=== PATIENT | female | born 2000 | race Caucasian/White ===

== ENCOUNTER 2019-08-22 12:47 | Emergency (ER) | payer OTHER ==
[~2019-08-22] VITALS: Ht 162.6 cm; Wt 68.3 kg
[2019-08-22] MEDS ORDERED: METOCLOPRAMIDE 5 MG/ML, 2ML ONE (13:23)
[2019-08-22] MEDS ORDERED: KETOROLAC 30 MG/1 ML ONE (13:23)
[2019-08-22] MEDS ORDERED: DIPHENHYDRAMINE 50 MG/ML, 1ML ONE (13:23)
[2019-08-22] MEDS ORDERED: DIPHENHYDRAMINE 50 MG/ML, 1ML IVPush ONE (13:30)
[2019-08-22] MEDS ORDERED: METOCLOPRAMIDE 5 MG/ML, 2ML IVPush ONE (13:30)
[2019-08-22] MEDS ORDERED: KETOROLAC 30 MG/1 ML IVPush ONE (13:30)
[2019-08-22] MEDS ORDERED: SODIUM CHLORIDE 0.9% 1,000ML IVBOLUS ONE ×2 (13:30→14:30)
[2019-08-22 13:37] LABS: BASOPHILS # (AUTO) 0.06 x10^3/uL (0-0.1); BASOPHILS % (AUTO) 1 % (0-1); CHLORIDE 111 mmol/L (98-107); EOSINOPHILS # (AUTO) 0.07 x10^3/uL (0-0.4); EOSINOPHILS % (AUTO) 1 % (1-7); LYMPHOCYTES # (AUTO) 1.56 x10^3/uL (1-3.4); LYMPHOCYTES % (AUTO) 23 % (22-44); MD NO; MEAN CORPUSCULAR HGB CONC 33.3 g/dL (32.4-35.8); MEAN CORPUSCULAR VOLUME 93.1 fL (80-100); MEAN PLATELET VOLUME 10.6 fL (7.4-10.4); MONOCYTES # (AUTO) 0.42 x10^3/uL (0.2-0.8); MONOCYTES % (AUTO) 6 % (2-9); NEUTROPHILS # (AUTO) 4.64 x10^3/uL (1.8-6.8); NEUTROPHILS % (AUTO) 69 % (42-75); PLATELET COUNT 173 x10^3/uL (130-400); RED BLOOD COUNT 4.54 x10^6/uL (3.82-5.3); RED CELL DISTRIBUTION WIDTH 12.4 % (9.6-15.2)
[2019-08-22 13:44] LABS: ANION GAP 6 mmol/L (5-15); CREATININE 0.66 mg/dL (0.55-1.02)
[2019-08-22 13:57] LABS: MICROSCOPIC NOT IND
[2019-08-22 15:12] VITALS: BP 102/71
== END 2019-08-22 15:15 | disposition home or self-care (01) ==
LOC: ED 14:50
DX: G44.209 Tension-type headache, unspecified, not intractable (principal); R42 Dizziness and giddiness; I95.9 Hypotension, unspecified; H53.9 Unspecified visual disturbance; R94.31 Abnormal electrocardiogram [ECG] [EKG]
CPT/HCPCS: 36415; 80048; 81003; 82040; 84703; 85025; 93005; 96361; 96374; 96375; 99284; J1200; J1885; J2765; J7030

== ENCOUNTER 2019-08-31 09:27 | Emergency (ER) | payer OTHER ==
[~2019-08-31] VITALS: Ht 160 cm; Wt 68.1 kg
--- NOTE | 2019-08-31 09:52 | NUR ---
RLQ ABD PAIN BEGINNING AT 6AM TODAY. HX OF RECURRING ABD PAIN, N/V. HAS A GI (ON OMEPRAZOLE, PHENERGAN/ZOFRAN). DENIES
[2019-08-31] MEDS ORDERED: ONDANSETRON 2MG/ML, 2ML ONE (09:55)
[2019-08-31] MEDS ORDERED: MORPHINE SULFATE 4 MG/ML, 1ML ONE (09:56)
[2019-08-31] MEDS ORDERED: ONDANSETRON 2MG/ML, 2ML IVPush ONE (10:00)
[2019-08-31] MEDS ORDERED: SODIUM CHLORIDE FLUSH 10ML SYR IVF ONE (10:00)
[2019-08-31] MEDS ORDERED: MORPHINE SULFATE 4 MG/ML, 1ML IVPush PRN (10:00)
--- NOTE | 2019-08-31 10:15 | NUR ---
CC UA OBTAINED SENT PIV PLACED FROM WHICH LABS WERE DRAWN-THEN MEDICATRED PER EMAR FOR RLQ PAIN AT 12/16 PATIENT THEN TO US AT 1015
[2019-08-31] MEDS ORDERED: ONDA4TAB13 SL (10:22)
[2019-08-31] MEDS ORDERED: OMEP-110 PO (10:22)
[2019-08-31 10:26] LABS: BASOPHILS # (AUTO) 0.03 x10^3/uL (0-0.1); BASOPHILS % (AUTO) 1 % (0-1); EOSINOPHILS # (AUTO) 0.08 x10^3/uL (0-0.4); EOSINOPHILS % (AUTO) 1 % (1-7); LYMPHOCYTES # (AUTO) 1.66 x10^3/uL (1-3.4); LYMPHOCYTES % (AUTO) 28 % (22-44); MD NO; MEAN CORPUSCULAR HEMOGLOBIN 31.6 pg (27.0-34.8); MEAN CORPUSCULAR HGB CONC 33.9 g/dL (32.4-35.8); MEAN PLATELET VOLUME 10.4 fL (7.4-10.4); MONOCYTES % (AUTO) 8 % (2-9); NEUTROPHILS # (AUTO) 3.75 x10^3/uL (1.8-6.8); NEUTROPHILS % (AUTO) 62 % (42-75); PLATELET COUNT 162 x10^3/uL (130-400); RED BLOOD COUNT 4.81 x10^6/uL (3.82-5.3); RED CELL DISTRIBUTION WIDTH 11.9 % (9.6-15.2)
[2019-08-31 10:27] LABS: MICROSCOPIC NOT IND
[2019-08-31 10:30] LABS: ALANINE AMINOTRANSFERASE 20 U/L (12-78); ANION GAP 8 mmol/L (5-15); CALCIUM 8.6 mg/dL (8.5-10.1); CHLORIDE 111 mmol/L (98-107); CREATININE 0.66 mg/dL (0.55-1.02)
[2019-08-31 10:34] LABS: ALKALINE PHOSPHATASE 36 U/L (45-117); BILIRUBIN,TOTAL 0.5 mg/dL (0.2-1.0); TOTAL PROTEIN 7.4 g/dL (6.4-8.2)
--- NOTE | 2019-08-31 11:30 | NUR ---
WITH REASSESSMENT (BACK FROM ULTRASOUND) PATIENT REPORTS NAUSEA AND PAIN COMPLETELY RESOLVED PROVIDER TO BEDSIDE-PLAN TO PERFORM CT SCAN NOW VSS
--- NOTE | 2019-08-31 11:47 | NUR ---
TO CT SCAN
[2019-08-31] MEDS ORDERED: OMNIPAQUE 350 MG/ML, 100ML BOTTLE ONE (12:03)
[2019-08-31] MEDS ORDERED: SODIUM CHLORIDE 0.9% 1,000ML IVBOLUS ONE (12:30)
[2019-08-31] MEDS ORDERED: KETOROLAC 30 MG/1 ML ONE (12:34)
--- NOTE | 2019-08-31 12:43 | NUR ---
medicated per emar for rebounded rlq pain to 5/10 and 1l ns for suspected dehydration po challenged unremarkable provider to bedside to review testing
[2019-08-31 12:53] VITALS: BP 90/50
[2019-08-31] MEDS ORDERED: KETOROLAC 30 MG/1 ML IVPush ONE (13:00)
== END 2019-08-31 13:13 | disposition home or self-care (01) ==
LOC: ED 09:54
DX: A08.4 Viral intestinal infection, unspecified (principal); R10.31 Right lower quadrant pain; R10.32 Left lower quadrant pain; R11.2 Nausea with vomiting, unspecified
CPT/HCPCS: 36415; 74177; 76700; 76830; 80053; 81003; 83690; 84703; 85025; 96374; 96375; 99285; J1885; J2270; J2405; J7030; Q9967